=== PATIENT | female | born 2000 | race African-American/Black ===

== ENCOUNTER 2022-10-27 16:04 | Day surgery (SDC) | payer SELFPAY ==
[2022-10-27] MEDS ORDERED: Labetalol HCl 100 MG/20 ML VIAL SLOW IVP PRN ×3 (16:38)
[2022-10-27] MEDS ORDERED: Calcium Gluc 4.6 MEQ/10 ML (100 MG/ML) SLOW IVP PRN (16:38)
[2022-10-27] MEDS ORDERED: Lorazepam 2 MG/ML VIAL SLOW IVP PRN (16:38)
[2022-10-27] MEDS ORDERED: hydrALAZINE 20 MG/ML VIAL SLOW IVP PRN ×2 (16:38)
[2022-10-27 16:54] VITALS: BMI 25.9
[2022-10-27 17:23] LABS: #Basophils 0.1 10x3/uL (0.0-0.2); %Basophils 0.5 % (0.0-2.0); %Eosinophils 0.2 % (0.0-6.0); %Lymphocytes 16.7 % (18.0-47.0); %Monocytes 8.1 % (0.0-10.0); %Neutrophils 72.9 % (40.0-75.0); Hemoglobin 12.3 g/dL (12.0-15.5); Mean Corpuscular HGB CONC 33.9 g/dL (32.0-36.0); Mean Corpuscular Hemoglobin 31.7 pg (27.0-33.0); Mean Corpuscular Volume 93.6 fl (81.6-98.3); Mean Platelet Volume 10.2 fl (7.4-10.4); Platelet Count 303 10x3/uL (150-450); RBC Distribution Width 12.7 % (11.5-14.5); Red Blood Cell (RBC) Count 3.88 10x6/uL (3.90-5.03); White Blood Cell (WBC) Count 12.4 10x3/uL (3.5-10.5)
[2022-10-27 17:44] LABS: ALT (SGPT) Less than 6 U/L (8-55); AST (SGOT) 13 U/L (5-34); Albumin 3.8 g/dL (3.5-5.0); Alkaline Phosphatase 146 U/L (40-110); Anion Gap 14 mmol/L (10-20); BUN (Urea Nitrogen) 5 mg/dL (7.0-18.7); Bilirubin, Total 0.3 mg/dL (0.2-1.2); Calc. Creatinine Clearance 185 mL/min (70-130); Calcium 8.9 mg/dL (7.8-10.44); Carbon Dioxide 18 mmol/L (22-29); Chloride 106 mmol/L (98-107); Estimated GFR 133; Globulin 3.1 g/dL (2.4-3.5); Glucose 82 mg/dL (70-105); Potassium 3.8 mmol/L (3.5-5.1); Protein, Total 6.9 g/dL (6.0-8.3); Sodium 134 mmol/L (136-145)
[2022-10-27 17:58] LABS: HBSAg Index 0.12 S/CO (0-0.99); HIV (1/2) Antibody/Antigen Non-Reactive (NonReactive); HIV 1/2 INDEX 0.07 S/CO (<1.00); Hep B Surf Ag - L&D Non-Reactive S/CO (NonReactive); Thyroid Stimulating Hormone 1.3824 uIU/mL (0.35-4.94)
[2022-10-27 17:59] LABS: Syphilis Antibody Nonreactive (Nonreactive); Syphilis Antibody Index 0.05 S/CO (<1.00 Non-Reactive)
[2022-10-27 18:14] LABS: Amphetamine Not Detected (NotDetected); Barbiturates Screen Not Detected (NotDetected); Benzodiazepine Screen Not Detected (NotDetected); Cocaine Metabolite Screen Not Detected (NotDetected); Methadone Not Detected (NotDetected); Methamphetamine Not Detected (NotDetected); Opiate Screen Not Detected (NotDetected); Oxycodone Screen Not Detected (NotDetected); Phencyclidine (PCP) Not Detected (NotDetected); THC/Cannabinoid Screen Not Detected (NotDetected); Tricyclic Screen Not Detected (NotDetected)
[2022-10-27 19:24] LABS: Bilirubin Neg (Negative); Blood, Urine Negative (Negative); Clarity Clear (Clear); Glucose, Urine (Dipstick) Normal (Negative); Ketone, Urine Negative (Negative); Leukocyte 25 (Negative); Nitrite Negative (Negative); Protein, Urine (Dipstick) Negative (Neg-Trace); Urobilinogen Normal mg/dL (Less than 2); pH, Urine 6.5 (5.0-9.0)
[2022-10-27 19:30] LABS: Bacteria/HPF 1+ HPF (None Seen); CAUTI Indications for Culture Pregnancy; RBC/HPF 0-3 HPF (0-3); Squamous Epithelial 0-3 HPF (0-3)
[2022-10-27 19:43] LABS: Urine Culture Reflex Yes Yes
[2022-10-28 00:05] LABS: Hep C IgG Ab Non-Reactive S/CO (NonReactive); Hep C Index 0.08 S/CO (0-0.79)
[2022-10-28 16:37] LABS: Chlamydia by PCR, Vaginal Swab Not Detected (NotDetected)
[2022-10-29 17:29] LABS: GC by PCR, Vaginal Swab Not Detected (NotDetected)
== END 2022-10-27 21:45 | disposition home or self-care (01) ==
LOC: EEVIPCON 16:04 → CSHLD/OP 16:04
PROVIDERS: ATTEND Family Medicine
DX: O99.891 Other specified diseases and conditions complicating pregnancy (principal); R03.0 Elevated blood-pressure reading, without diagnosis of hypertension; O99.342 Other mental disorders complicating pregnancy, second trimester; F32.A Depression, unspecified; G47.00 Insomnia, unspecified; O09.32 Supervision of pregnancy with insufficient antenatal care, second trimester; O26.812 Pregnancy related exhaustion and fatigue, second trimester; Z91.410 Personal history of adult physical and sexual abuse; Z3A.34 34 weeks gestation of pregnancy
CPT/HCPCS: 36415; 76805; 76815; 80053; 80306; 81001; 82570; 83036; 84156; 84443; 85025; 86762; 86780; 86803; 86850; 86900; 86901; 87086; 87480; 87491; 87510; 87591; 87660

== ENCOUNTER 2022-11-30 22:19 | Inpatient (IN) | payer OTHER ==
[~2022-11-30 22:19] MED LIST: Bupivacaine 0.25% HCL 30 ML VIAL ONE
[2022-11-30 23:07] LABS: Fetal Membranes Rupture No Membranes Rupture (No Rupture)
[2022-11-30] MEDS ORDERED: hydrALAZINE 20 MG/ML VIAL SLOW IVP PRN (23:37)
[2022-11-30] MEDS ORDERED: Clotrimazole 2% 3 Day Vag Cr 22.2 GM TUBE VAG SCH (23:59)
[2022-12-01] MEDS ORDERED: fentaNYL 50 mcg/mL 1 mL Vial ONE (01:03)
[2022-12-01] MEDS: fentaNYL 50 mcg/mL 1 mL Vial SLOW IVP SCH ×2 (01:05→04:05)
[2022-12-01] MEDS ORDERED: Ondansetron PF 4 MG/2 ML Vial IVP PRN ×2 (03:33→05:00)
[2022-12-01] MEDS ORDERED: Lidocaine 1% (PF) 30 ML VIAL SC PRN (03:33)
[2022-12-01] MEDS ORDERED: Promethazine HCl 25 MG/ML VIAL IM PRN ×2 (03:33→05:00)
[2022-12-01] MEDS ORDERED: Tranexamic Acid 1,000 MG/10 ML VIAL IVP PRN (03:36)
[2022-12-01] MEDS ORDERED: Misoprostol 200 MCG TAB PR PRN (03:36)
[2022-12-01] MEDS ORDERED: Carboprost 250 MCG/ML AMP IM PRN (03:36)
[2022-12-01] MEDS ORDERED: NS w/ Oxytocin 30 units 500 ML IV SCH ×3 (03:45)
[2022-12-01] MEDS ORDERED: Morphine 4 MG/ML VIAL SLOW IVP SCH (04:00)
[2022-12-01] MEDS ORDERED: fentaNYL/Ropivacaine Epidural 100 ML ONE (04:03)
[2022-12-01] MEDS ORDERED: fentaNYL 50 mcg/mL 1 mL Vial SLOW IVP PRN (04:09)
[2022-12-01 04:12] LABS: Hemoglobin 12.8 g/dL (12.0-15.5); Mean Corpuscular HGB CONC 34.9 g/dL (32.0-36.0); Mean Corpuscular Hemoglobin 31.6 pg (27.0-33.0); Mean Corpuscular Volume 90.6 fl (81.6-98.3); Mean Platelet Volume 10.3 fl (7.4-10.4); Platelet Count 239 10x3/uL (150-450); RBC Distribution Width 12.3 % (11.5-14.5); Red Blood Cell (RBC) Count 4.05 10x6/uL (3.90-5.03)
[2022-12-01 04:44] LABS: HBSAg Index 0.13 S/CO (0-0.99); Hep B Surf Ag - L&D Non-Reactive S/CO (NonReactive); Syphilis Antibody Nonreactive (Nonreactive); Syphilis Antibody Index 0.05 S/CO (<1.00 Non-Reactive)
[2022-12-01] MEDS ORDERED: ePHEDrine Sulfate 50 MG/10 ML VIAL SLOW IVP PRN (05:00)
[2022-12-01] MEDS ORDERED: Communication Order-Pharmacy FS SCH (05:00)
[2022-12-01] MEDS ORDERED: Moisturizing Cream (Eucerin) 113 GM JAR TOP PRN (05:00)
[2022-12-01] MEDS ORDERED: Naloxone HCl 0.4 mg/ml Vial IVP PRN ×2 (05:00)
[2022-12-01] MEDS ORDERED: Lactated Ringer's 500 ML IV PRN (05:00)
[2022-12-01] MEDS ORDERED: diphenhydrAMINE 50 MG/ML VIAL IVP PRN (05:00)
[2022-12-01] MEDS ORDERED: fentaNYL 2 mcg/Ropivacaine 0.2% Epidural 100 ML CADD EPIDURAL SCH (05:00)
[2022-12-01 05:26] VITALS: BMI 25.8
[2022-12-01] MEDS ORDERED: Ondansetron PF 4 MG/2 ML Vial ONE (07:44)
[2022-12-01] MEDS ORDERED: Benzocaine-Menthol 82.5 ML CAN TOP PRN (17:59)
[2022-12-01] MEDS ORDERED: Bisacodyl 10 MG SUPP PR PRN (17:59)
[2022-12-01] MEDS ORDERED: Milk Of Magnesia 30 ML UDCUP PO PRN (17:59)
[2022-12-01] MEDS: Ibuprofen 800 MG TAB PO SCH (18:18)
[2022-12-01] MEDS: Docusate 100 MG CAP PO SCH (22:00)
[2022-12-02] MEDS: Ibuprofen 800 MG TAB PO SCH ×4 (02:04→21:24)
[2022-12-02] MEDS ORDERED: Ferrous Sulfate 325 MG TAB PO SCH (08:00)
[2022-12-02] MEDS ORDERED: Melatonin 3 MG TAB PO PRN (08:07)
[2022-12-02] MEDS: Docusate 100 MG CAP PO SCH ×2 (08:41→21:24)
[2022-12-02] MEDS: Acetaminophen 325 MG TAB PO PRN (12:56)
[2022-12-02] MEDS ORDERED: Melatonin 3 MG TAB PO SCH (21:00)
[2022-12-03] MEDS: Ibuprofen 800 MG TAB PO SCH ×2 (05:54→14:33)
[2022-12-03 08:37] VITALS: BP 121/77; TEMP 97.5
[2022-12-03] MEDS: Acetaminophen 325 MG TAB PO PRN (08:51)
[2022-12-03] MEDS: Docusate 100 MG CAP PO SCH (08:52)
== END 2022-12-03 15:25 | disposition home or self-care (01) | DRG 806 ==
LOC: CSHLD/OP 22:19 → CSHLD 12-01 04:31 → CSHPP 12-01 15:31
PROVIDERS: ADMIT Family Medicine; ATTEND Family Medicine
PROC: 10E0XZZ Delivery of Products of Conception, External Approach (ICD-10-PCS; principal; 2022-12-01)
PROC: 0HQ9XZZ Repair Perineum Skin, External Approach (ICD-10-PCS; 2022-12-01)
PROC: 10907ZC Drainage of Amniotic Fluid, Therapeutic from Products of Conception, Via Natural or Artificial Opening (ICD-10-PCS; 2022-12-01)
DX: O99.344 Other mental disorders complicating childbirth (principal); O99.354 Diseases of the nervous system complicating childbirth; Z37.0 Single live birth; Z3A.39 39 weeks gestation of pregnancy; G43.909 Migraine, unspecified, not intractable, without status migrainosus; F32.A Depression, unspecified; Z79.899 Other long term (current) drug therapy; Z91.041 Radiographic dye allergy status; O70.0 First degree perineal laceration during delivery; O76 Abnormality in fetal heart rate and rhythm complicating labor and delivery; O16.4 Unspecified maternal hypertension, complicating childbirth; G47.00 Insomnia, unspecified
CPT/HCPCS: 36415; 51702; 84112; 85027; 86780; 86850; 86900; 86901; 87340; 87480; 87510; 87660; 99285; J2405; J3010; S0020